=== PATIENT | female | born 1975 | race American Indian/Alaskan Native ===

== ENCOUNTER 2016-11-28 08:19 | Outpatient (CLI) | payer BC ==
--- NOTE | 2016-11-28 10:38 | Mammography Report ---
Bilateral mammogram: Compared to 10/11/15. CAD study utilized. Findings: Scattered glandular parenchyma bilaterally. Benign densities left and right breast without interval change. Benign axillary nodes. No microcalcification. Oval new asymmetric density mid left breast 4 cm from nipple. Seen on MLO view. 3 mm new focal circumscribed asymmetry upper posterior right breast. Impression: New density left and right breast. Recommend spot mag and if necessary sonographic examination. BI-RADS CATEGORY: 0 = Needs additional imaging evaluation ACR BI-RADS MAMMOGRAPHIC CODES: 0 = Needs additional imaging evaluation; 1 = Negative; 2 = Benign; 3 = Probably benign; 4 = Suspicious; 5 = Malignant; 6 = Known biopsy-proven malignancy COMMENT: 1. Dense breast tissue, i.e., adenosis, fibrocystic changes, etc., may obscure an underlying neoplasm. 2. Approximately 10% of cancers are not detected with mammography. 3. A negative mammography report should not delay biopsy if a clinically suspicious mass is present. COMMENT: Patient follow-up letters are generated in [employer].
== END 2016-11-28 08:20 | disposition home or self-care (01) ==
LOC: SPVWC 08:19
PROVIDERS: ATTEND Obstetrics & Gynecology
DX: Z12.31 Encounter for screening mammogram for malignant neoplasm of breast (principal); I10 Essential (primary) hypertension
CPT/HCPCS: 77067; G0202

== ENCOUNTER 2016-12-11 08:16 | Outpatient (CLI) | payer BC ==
--- NOTE | 2016-12-11 09:34 | Mammography Report ---
BILATERAL DIGITAL DIAGNOSTIC MAMMOGRAM and RIGHT BREAST ULTRASOUND: 12/11/16 08:16:00 CLINICAL: Recalled for bilateral asymmetries. COMPARISON:11/28/16 screening FINDINGS: Lateralmedial and spot magnification views of each breast were performed. Satisfactory effacement of the left asymmetry but a persistent right upper asymmetry. Ultrasound of the right breast (including all four quadrants and the retroareolar area) was performed and demonstrated a single cyst at 1 o'clock 5 cm from the nipple measuring 3 x 3 x 3 mm. It correlates with the mammographic asymmetry. No solid mass or shadowing. IMPRESSION: Benign right cyst and negative left breast. BI-RADS CATEGORY: 2 - - Benign RECOMMENDATION: Routine mammographic screening in one year. ACR BI-RADS MAMMOGRAPHIC CODES: 0 = Needs additional imaging evaluation; 1 = Negative; 2 = Benign; 3 = Probably benign; 4 = Suspicious; 5 = Malignant; 6 = Known biopsy-proven malignancy COMMENT: 1. Dense breast tissue, i.e., adenosis, fibrocystic changes, etc., may obscure an underlying neoplasm. 2. Approximately 10% of cancers are not detected with mammography. 3. A negative mammography report should not delay biopsy if a clinically suspicious mass is present. COMMENT: Patient follow-up letters are generated via our [employer] application.
== END 2016-12-11 08:17 | disposition home or self-care (01) ==
LOC: SPVWC 08:16
PROVIDERS: ATTEND Obstetrics & Gynecology
DX: N60.01 Solitary cyst of right breast (principal); N64.89 Other specified disorders of breast; I10 Essential (primary) hypertension
CPT/HCPCS: 76641; G0204; 77066

== ENCOUNTER 2017-11-30 08:24 | Outpatient (CLI) | payer BC ==
--- NOTE | 2017-12-03 11:28 | Mammography Report ---
BILATERAL DIGITAL SCREENING MAMMOGRAM with CAD: 11/30/17 08:24:00 CLINICAL: Routine screening. COMPARISON:12/11/16 FINDINGS: The breasts are heterogeneously dense, which may obscure small masses. No mass, architectural distortion or suspicious calcifications. IMPRESSION: No mammographic evidence of malignancy. BI-RADS CATEGORY: 1 - - Negative RECOMMENDATION: Routine mammographic screening in one year. COMMENT: Patient follow-up letters are generated by our [employer] application.
== END 2017-11-30 08:25 | disposition home or self-care (01) ==
LOC: SPVWC 08:24
PROVIDERS: ATTEND Obstetrics & Gynecology
DX: Z12.31 Encounter for screening mammogram for malignant neoplasm of breast (principal)
CPT/HCPCS: 77067

== ENCOUNTER 2018-12-18 08:28 | Outpatient (CLI) | payer BC ==
--- NOTE | 2018-12-18 14:46 | Mammography Report ---
BILATERAL SCREENING MAMMOGRAM DIGITAL WITH CAD and 3D TOMOSYNTHESIS INDICATION: Routine screening. COMPARISONS: 11/30/2017. FINDINGS: 2D and 3D craniocaudal and mediolateral oblique views of both breasts were obtained util[employer] digital acquisition. The breasts are heterogeneously dense, which may obscure small masses. No gillian picious findings are noted in either breast. In addition to standard review, the examination was analyzed for possible abnormalities using a compu ter-assisted detection device (iCAD). IMPRESSION: NO EVIDENCE OF MALIGNANCY IN EITHER BREAST. SCREENING MAMMOGRAPHY IN ONE YEAR IS RECOMMENDED. BI-RADS CATEGORY 1: NEGATIVE Signer Name: Heraclio Palumbo MD Signed: 12/18/2018 2:41 PM Workstation Name: [id number]
== END 2018-12-18 08:29 | disposition home or self-care (01) ==
LOC: SPVWC 08:28
PROVIDERS: ATTEND Obstetrics & Gynecology
DX: Z12.31 Encounter for screening mammogram for malignant neoplasm of breast (principal); I10 Essential (primary) hypertension
CPT/HCPCS: 77063; 77067

== ENCOUNTER 2020-12-30 09:09 | Outpatient (CLI) | payer BC ==
--- NOTE | 2020-12-30 09:47 | Mammography Report ---
DIGITAL SCREENING MAMMOGRAM WITH CAD, 12/30/2020 CLINICAL INFORMATION / INDICATION: Routine screening mammography. SCREENING MAMMO TECHNIQUE: Digital bilateral 2D mammography was obtained in the craniocaudal and mediolateral obliqu e projections. This examination was interpreted with the benefit of Computer-Aided Detection analysis . COMPARISON: 10/11/15 through 12/30/19. FINDINGS: Breast Density: The breasts are heterogeneously dense, which may obscure small masses. No dominant mass, suspicious calcifications, or architectural distortion in either breast. No new abnormality is seen. IMPRESSION: No mammographic evidence of malignancy. Follow up recommendation: Routine yearly BI-RADS Category 1: Negative. A "normal" or negative report should not discourage follow up or biopsy of a clinically significant f inding. A written summary of these findings will be mailed to the patient. The patient will be entered into a mammography reporting system which will generate a reminder letter for the patient's next appointmen t at the appropriate interval. The [employer] recommends yearly mammograms starting at age 40 and continuing as l tim as a woman is in good health. Breast MRI is recommended for women with an approximate 20-25% or greater lifetime risk of breast cancer, including women with a strong family history of breast or ova bharti cancer or who have been treated for Hodgkin's disease. Signer Name: Joe Farfan MD Signed: 12/30/2020 9:42 AM Workstation Name: [id number]
== END 2020-12-30 09:10 | disposition home or self-care (01) ==
LOC: SPVWC 09:09
PROVIDERS: ATTEND Obstetrics & Gynecology
DX: Z12.31 Encounter for screening mammogram for malignant neoplasm of breast (principal)
CPT/HCPCS: 77067

== ENCOUNTER 2022-01-03 08:39 | Outpatient (CLI) | payer BC ==
--- NOTE | 2022-01-04 18:27 | Mammography Report ---
DIGITAL SCREENING MAMMOGRAM WITH CAD, 01/03/2022 CLINICAL INFORMATION / INDICATION: Routine screening mammography. TECHNIQUE: Digital bilateral 2D mammography was obtained in the craniocaudal and mediolateral obliqu e projections. This examination was interpreted with the benefit of Computer-Aided Detection analysis . COMPARISON: 12/30/2020, 12/30/2019 FINDINGS: Breast Density: The breasts are heterogeneously dense, which may obscure small masses. No dominant mass, suspicious calcifications, or architectural distortion in either breast. No interval change. IMPRESSION: No mammographic evidence of malignancy. Follow up recommendation: Routine yearly screening mammogram. BI-RADS Category 1: NEGATIVE A "normal" or negative report should not discourage follow up or biopsy of a clinically significant f inding. A written summary of these findings will be mailed to the patient. The patient will be entered into a mammography reporting system which will generate a reminder letter for the patient's next appointmen t at the appropriate interval. The [employer] recommends yearly mammograms starting at age 40 and continuing as l tim as a woman is in good health. Breast MRI is recommended for women with an approximate 20-25% or greater lifetime risk of breast cancer, including women with a strong family history of breast or ova bharti cancer or who have been treated for Hodgkin's disease. Signer Name: Zina Lay MD Signed: 01/04/2022 6:23 PM Workstation Name: [id number]
== END 2022-01-03 08:40 | disposition home or self-care (01) ==
LOC: SPVWC 08:39
PROVIDERS: ATTEND Obstetrics & Gynecology
DX: Z12.31 Encounter for screening mammogram for malignant neoplasm of breast (principal)
CPT/HCPCS: 77067